=== PATIENT | male | born 1990 | race Caucasian/White ===

== ENCOUNTER 2018-01-02 13:43 | Emergency (ER) | payer MEDICAID ==
[~2018-01-02] VITALS: Ht 165.1 cm; Wt 77.1 kg
[2018-01-02 13:52] VITALS: Ht 165.1 cm; Wt 77.1 kg
[2018-01-02 17:09] VITALS: BP 138/74
== END 2018-01-02 17:10 | disposition home or self-care (01) ==
LOC: ED 13:43
DX: S61.012A Laceration without foreign body of left thumb without damage to nail, initial encounter (principal)
CPT/HCPCS: 90715; J0690; J3490